=== PATIENT | female | born 1975 | race Caucasian/White ===

== ENCOUNTER 2017-10-02 19:18 | Inpatient (IN) | payer MEDICARE, MEDICAID ==
--- NOTE | 2017-10-02 19:58 | C.PDOC ---
History Of Present Illness 42 year old female, whose PMHx includes Bipolar Disorder, presents to the ED for psychiatric evaluation. Patient admits to suicidal ideation and plans on ingesting pills. Patient denies ingesting any pills. She denies any other medical complaints at this time. Time Seen by Provider: 10/02/17 19:55 Chief Complaint (Nursing): Psychiatric Evaluation History Per: Patient History/Exam Limitations: no limitations Onset/Duration Of Symptoms: Hrs Current Symptoms Are (Timing): Still Present Suicide/Self Injury Attempted (Context): None Modifying Factor(s): None Associated Symptoms: Suicidal Thoughts, Suicidal Plan Involuntary Hold By: None Recent travel outside of the [place]: No Additional History Per: Patient Past Medical History Reviewed: Historical Data, Nursing Documentation, Vital Signs Vital Signs: Last Vital Signs Temp 98.2 F 10/02/17 19:46 Pulse 98 H 10/02/17 19:46 Resp 18 10/02/17 19:46 BP 134/83 10/02/17 19:46 Pulse Ox 98 10/02/17 20:44 - Medical History PMH: Bipolar Disorder, Depression, Personality Disorder, Post Traumatic Stress Disorder, Sexually Transmitted Disease (genital herpes) Denies: Diabetes, Hepatitis, HIV, HTN, Chronic Kidney Disease, Seizures Surgical History: No Surg Hx - [facility] Procedures INDIVID PSYCHOTHERAP NEC (04/05/14) PSYCHIAT DRUG THERAP NEC (04/05/14) Family History: States: Unknown Family Hx - Social History Hx Tobacco Use: No Hx Alcohol Use: No Hx Substance Use: No (USED TO SMOKE MARIJUANA) - Immunization History Hx Tetanus Toxoid Vaccination: No Hx Influenza Vaccination: No Hx Pneumococcal Vaccination: No Review Of Systems Psych: Positive for: Suicidal ideation (with plan ) Physical Exam - Physical Exam Appears: Non-toxic, No Acute Distress Skin: Normal Color, Warm, Dry Head: Atraumatic, Normacephalic Eye(s): bilateral: Normal Inspection Oral Mucosa: Moist Neck: Supple Chest: Symmetrical, No Deformity, No Tenderness Cardiovascular: Rhythm Regular, No Murmur Respiratory: Normal Breath Sounds, No Rales, No Rhonchi, No Wheezing Extremity: Normal ROM, Capillary Refill (less than 2 seconds ) Neurological/Psych: Oriented x3, Normal Speech, Normal Cognition ED Course And Treatment - Laboratory Results Result Diagrams: 10/02/17 20:20 10/02/17 20:20 O2 Sat by Pulse Oximetry: 98 (on RA) Pulse Ox Interpretation: Normal Medical Decision Making Medical Decision Making: pending medical clearacne. labspending Progress: Bloodwork and UA ordered and reviewed. 2043: Patient has been medically cleared. pt accepted to crisis Disposition - Disposition Referrals: Non [facility] Provider, [Primary Care Provider] - Disposition Time: 22:06 Condition: STABLE Forms: [employer] ([place]) - Clinical Impression Clinical Impression: Bipolar 1 disorder - Scribe Statement The provider has reviewed the documentation as recorded by the Scribe (Sujey Abel) Provider Attestation: All medical record entries made by the Scribe were at my direction and personally dictated by me. I have reviewed the chart and agree that the record accurately reflects my personal performance of the history, physical exam, medical decision making, and the department course for this patient. I have also personally directed, reviewed, and agree with the discharge instructions and disposition. Decision To Admit - Pt Status Changed To: Hospital Disposition Of: Inpatient - Admit Certification Admit to Inpatient:: After my assessment, the patient will require hospitalization for at least two midnights. This is because of the severity of symptoms shown, intensity of services needed, and/or the medical risk in this patient being treated as an outpatient. - InPatient: Physician Admission Certification: I certify that this patient requires 2 or more midnights of care for the following reason:: needs pysch - . Bed Request Type: Psychiatry Admitting Physician: Keara Joseph Patient Diagnosis: Bipolar 1 disorder
[2017-10-02 20:26] LABS: BASO # 0.1 K/uL (0.0-0.2); BASO % 0.9 % (0.0-2.0); EOS # 0.1 K/uL (0.0-0.7); EOS % 1.1 % (0.0-4.0); HEMOGLOBIN 12.9 g/dL (11.0-16.0); LYMPH # 3.5 K/uL (1.0-4.3); LYMPH % 33.1 % (20.0-40.0); MEAN CELL VOLUME 82.8 fL (81.0-99.0); MEAN CORPUSCULAR HEMOGLOBIN 27.8 pg (27.0-31.0); MEAN CORPUSCULAR HGB CONC 33.5 g/dL (33.0-37.0); MEAN PLATELET VOLUME 8.8 fL (7.2-11.7); MONO # 0.9 K/uL (0.0-0.8); MONO % 8.8 % (0.0-10.0); NEUT # 5.9 K/uL (1.8-7.0); NEUT % 56.1 % (50.0-75.0); RBC 4.66 Mil/uL (3.80-5.20); RED CELL DISTRIBUTION WIDTH 14.8 % (11.5-14.5); WHITE BLOOD COUNT 10.5 K/uL (4.8-10.8)
[2017-10-02 20:28] LABS: HCG,QUALITATIVE URINE NEGATIVE (NEGATIVE)
[2017-10-02 20:35] LABS: SQUAMOUS EPITHIAL 5 /hpf (0-5); URINE BACTERIA RARE (<OCC); URINE BILIRUBIN NEGATIVE (NEGATIVE); URINE BLOOD NEGATIVE (NEGATIVE); URINE CLARITY Hazy (Clear); URINE COLOR Yellow (YELLOW); URINE GLUCOSE (UA) NORMAL (Normal); URINE LEUKOCYTE ESTERASE NEG Leu/uL (Negative); URINE PROTEIN 1+ mg/dL (NEGATIVE); URINE UROBILINOGEN NORMAL mg/dL (0.2-1.0)
[2017-10-02 20:42] LABS: ALB/GLOB RATIO 1.4 (1.0-2.1); ALBUMIN 4.1 g/dL (3.5-5.0); ALT/SGPT 13 U/L (9-52); AST/SGOT 23 U/L (14-36); BLOOD UREA NITROGEN 8 mg/dL (7-17); CALCIUM 8.8 mg/dl (8.6-10.4); GFR AFRICAN-AMERICAN > 60; GFR NON-AFRICAN AMERICAN > 60
[2017-10-02 20:54] LABS: ACETAMINOPHEN < 10.0 ug/mL (10.0-30.0); SALICYLATE < 1.0 mg/dL 1
[2017-10-02 20:59] LABS: BARBITURATES, UR NEGATIVE (NEGATIVE); BENZODIAZEPINES, UR NEGATIVE (NEGATIVE); OPIATES, UR NEGATIVE (NEGATIVE); PHENCYCLIDINE, UR NEGATIVE (NEGATIVE)
[2017-10-02 21:00] LABS: VALPROIC ACID 64.6 ug/mL (50.0-100.0)
--- NOTE | 2017-10-02 23:49 | PCM.BM ---
<Yobani Oden - Last Filed: 10/02/17 23:46> Treatment Plan Problems - Problems identified on initial assessmt Depression Date Initiated: 10/02/17 Time Initiated: 23:00 Assessment reference: NA Status: Active Suicidal Ideation Date Initiated: 10/02/17 Time Initiated: 23:00 Assessment reference: NA Status: Active Substance Abuse Date Initiated: 10/02/17 Time Initiated: 23:00 Assessment reference: NA Status: Active (Using Marijuana) Treatment assets and liabiliti Patient Assests: adapts well, cooperative, educated, self-reliant, ADL independent, negotiates basic needs Patient Liabilities: physical pain, financial problems, poor support system, relationship conflicts, substance abuse, medical problems - Milieu Protocol Maintain good personal hygiene: daily Encourage regular showers, daily Remind patient to perform daily oral care, daily Assist patient to perform ADL's Maintain personal safety: every shift Educate patient to report safety concerns to staff, every shift Monitor environment for contraband/sharps Medication safety: Monitor for expected outcome, potential side effects: every shift, Assess barriers to learning: every shift, Assess readiness for medication education: every shift <Tamra Mcallister - Last Filed: 10/03/17 10:55> Family Contact Family involvement: Famliy/SO not involved - Goals for Treatment Patient goals for treatment: "I want to go back to therapy at the [facility]." Discharge/Continuing Care - Education Needs Education Needs: Patient Medication, Patient Coping Skills, Patient Placement options, Patient Community resources - Discharge Discharge Criteria: Tolerates medication w/o severe side effects, Free of Suicidal thoughts, Reduction of target symptoms Discharge to:: Home - Treatment Team Participation Discussed with Family/SO: No Was Patient/Family/SO present at Treatment Team Meeting: Yes <Damien Green - Last Filed: 10/03/17 10:56> - Diagnosis (1) Bipolar 1 disorder Status: Acute Interventions: 10/03/17 10:56 * Assess/adjust medications daily and /or as needed * See patient on an individual basis 7x/week to assess level of manic behaviors and stability * Discuss risks, benefits, side effects and alternatives of medications * (2) Cannabis use disorder, moderate, dependence Status: Acute Interventions: 10/03/17 10:56 * Assess 7x/week regarding severity of withdrawal * Educate regarding risks, benefits, side effects and alternatives of medications * Use Motivational Interviewing for abstinence * Use CBT for relapse prevention * Medication management for withdrawal symptoms * Encourage medication assisted treatment *
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
[2017-10-03] MEDS: Divalproex 500 mg DR Tab PO SCH ×2 (11:42→17:38)
[2017-10-04] MEDS ORDERED: Influenza Vaccine 60 mcg/0.5 mL SYR (4YR UP) IM ONE (10:00)
[2017-10-04] MEDS: Divalproex 500 mg DR Tab PO SCH ×2 (10:00→17:32)
[2017-10-04] MEDS ORDERED: Pneumococcal 23-Valent Vaccine IM ONE (10:20)
--- NOTE | 2017-10-04 18:13 | PCM.PYCHPN ---
Psychiatric Progress Note - Psychiatric Progress Note Patient Chief Complaint: I was feeling increasingly depressed and suicidal Mental Status Examination - Cognitive Function Orientation: Person, Place, Situation, Time - Mood Mood: Depressed, Anxious - Affect Affect: Constricted, Depressed - Formal Thought Process Formal Thought Process: Delusions, Paranoia, Flight of ideas, Circumstantial - Homicidal Ideation Homicidal Ideation: No Goal/Treatment Plan - Goal/Treatment Plan Progress Toward Problem(s) and Goals/Treatment Plan: Bipolar 1 mixed severe with psychotic features CBT Psychoeducation Supportive therapy, group therapy, individual therapy Depakote 500 mg by mouth twice a day Topamax 100 mg PO Daily Neurontin 300 mg by mouth 3 times a day Trazodone 50 mg by mouth daily at bedtime Ativan 1 mg by mouth every 6 hours when necessary PTSD chronic Psychoeducation Supportive therapy, group therapy, individual therapy Cannabis use disorder moderate CBT Psychoeducation Supportive therapy, individual therapy Use [place] for abstinence Lupus Continue prescribed medications
[2017-10-05 05:58] VITALS: BP 130/70; PULSE 67; RESP 16; TEMP 97.9; O2SAT 99
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
[2017-10-05] MEDS: Divalproex 500 mg DR Tab PO SCH (09:44)
== END 2017-10-05 10:25 | disposition home or self-care (01) | DRG 885 ==
LOC: SUPCPDRO 19:18 → C.ER 19:18 → C.5E 22:03
PROVIDERS: ADMIT Psychiatry & Neurology Psychiatry; ATTEND Psychiatry & Neurology Psychiatry
PROC: GZHZZZZ Group Psychotherapy (ICD-10-PCS; principal; 2017-10-02)
PROC: GZ58ZZZ Individual Psychotherapy, Cognitive-Behavioral (ICD-10-PCS; 2017-10-02)
PROC: GZ56ZZZ Individual Psychotherapy, Supportive (ICD-10-PCS; 2017-10-02)
DX: F31.64 Bipolar disorder, current episode mixed, severe, with psychotic features (principal); R45.851 Suicidal ideations; F12.20 Cannabis dependence, uncomplicated; F43.12 Post-traumatic stress disorder, chronic; F60.9 Personality disorder, unspecified; M32.9 Systemic lupus erythematosus, unspecified; E78.00 Pure hypercholesterolemia, unspecified; G47.00 Insomnia, unspecified